=== PATIENT | female | born 2005 | race Two or more races ===

== ENCOUNTER → 2024-06-02 | Outpatient (CLI) | payer MEDICAID, SELFPAY ==
--- NOTE | 2024-06-02 13:00 | XR_ITS ---
Examination: Complete OB ultrasound, less than 14 weeks, transabdominal Date and time of exam: June 02, 2024 1327 hours INDICATIONS: Positive test 2 months ago Technique: Obstetrical ultrasound images less than 14 weeks performed via transabdominal imaging Findings: A normal shaped single intrauterine gestation is present in the uterus. pole 5.2 cm corresponds to 11 week 6 day gestational age Cardiac motion 167 BPM Anterior uterine body area of fibroid degeneration 4.1 cm Ultrasonographic survey of visible and placental structures unremarkable. Amniotic fluid volume appears appropriate for this estimated gestational age. Right ovary 2.8 cm arterial flow Left ovary 2.5 cm arterial flow IMPRESSION: Viable intrauterine gestation 11 weeks 6 days.
== END | disposition home or self-care (01) ==
LOC: CDIM 13:26
PROVIDERS: Referring Provider Nurse Practitioner Family; Visit Provider Nurse Practitioner Family
DX: Z32.01 Encounter for pregnancy test, result positive (principal)
CPT/HCPCS: 76801

== ENCOUNTER 2024-12-12 00:36 | Inpatient (IN) | payer MEDICAID, SELFPAY ==
[2024-12-12] VITALS (264 sets, daily range): BP systolic 99–163; BP diastolic 56–99; PULSE 72–138; RESP 16–100; TEMP 36.6–37.2; O2SAT 93–100; BMI 25.1
[2024-12-12 04:32] LABS: Eosinophils # (Auto) 0.0 Thou/mm3 (0.0-0.5); Eosinophils % (Auto) 0 % (0-10); Hemoglobin 11.9 g/dL (12.0-16.0); Nucleated Red Blood Cell # 0.00 Thou/mm3 (0.00-0.00); Nucleated Red Blood Cell % 0 /100 WBC (0)
[2024-12-12 04:35] LABS: Basophils # (Auto) 0.0 Thou/mm3 (0.0-0.2); Basophils % (Auto) 0 % (0-2.5); Hematocrit 35.1 % (36.0-46.0); Immature Granulocytes Auto 0.05 Thou/mm3 (0.00-0.00); Lymphocytes # (Auto) 1.4 Thou/mm3 (1.0-4.8); Lymphocytes % (Auto) 13 % (10-50); Mean Corpuscular HGB Conc 33.9 g/dl (31.0-37.0); Mean Corpuscular Hemoglobin 32.1 pg (25.0-35.0); Mean Corpuscular Volume 95 fL (80-100); Monocytes # (Auto) 0.8 Thou/mm3 (0.0-0.8); Monocytes % (Auto) 7 % (0-12); Neutrophils # (Auto) 8.0 Thou/mm3 (1.8-7.7); Neutrophils % (Auto) 79 % (37-80); Platelet Count 158 Thou/mm3 (140-440); RDW Standard Deviation 43.4 fL (36.4-46.3); Red Blood Count 3.71 Miln/mm3 (4.00-5.20); White Blood Count 10.2 Thou/mm3 (4.5-11.0)
[2024-12-12 05:16] LABS: Syphilis Nonreactive (Nonreactive)
[2024-12-12 08:24] LABS: Amphetamine/Metham Scrn,Ur OB Negative (Negative); Benzoylecgonine Screen, Ur OB Negative (Negative); Opiate Screen,Urine OB Negative (Negative); THC Screen,Urine OB Negative (Negative)
[2024-12-12] MEDS: RINGERS LACTATED 1000 ML 1,000 ML 100 ML IV ×3 (08:39→14:40)
--- NOTE | 2024-12-12 08:43 | ESHP_ITS ---
RE: GRICEL WILSON : 2005 DATE OF ADMISSION: 12/12/2024 HISTORY OF PRESENT ILLNESS: This is a 19-year-old 1, para 0 with due date of 12/17/2024 with intrauterine at 39 weeks and 2 days, who presents to labor and delivery complaining of contractions and demonstrated cervical change consistent with early labor. She denies any leaking or bleeding. She reports normal movement. She has care documented with [facility], which has been uncomplicated. Her group B strep is negative. She has taken iron for iron deficiency anemia. MEDICATIONS: multivitamin one p.o. daily. PAST MEDICAL HISTORY: Iron deficiency anemia. PAST SURGICAL HISTORY: Denies. SOCIAL HISTORY: She denies any alcohol, drug use or smoking. FAMILY HISTORY: Denies. ALLERGIES: NO KNOWN DRUG ALLERGIES. REVIEW OF SYSTEMS: She denies any chest pain, palpitations, cough, fever, shortness of breath or lower extremity pain. PHYSICAL EXAMINATION: VITAL SIGNS: Blood pressure 111/71, heart rate 88, respirations 18, temperature 98.6, weight 134 pounds. HEENT: Oropharynx and sclerae are clear. LUNGS: Clear to auscultation bilaterally. HEART: Regular rate and rhythm. ABDOMEN: Gravid consistent with estimated weight 7.5 pounds. PELVIC: See RN notes. EXTREMITIES: Nontender. SKIN: No gross rashes or lesions. NEUROLOGIC: No focal deficit. ASSESSMENT AND PLAN: Intrauterine at 39 weeks and 2 days labor. Anticipate spontaneous vaginal delivery. Informed consent was obtained. The patient was made aware of the risks, complications, alternatives, and benefits of operative vaginal delivery and delivery and agrees with these modes of delivery if indicated. DT: 07:38:32 TT: 08:31:00 Ref: [id number] - TID: [id number]
[2024-12-12] MEDS: OXYTOCIN in NS 30 units 30 UNIT/500 ML BAG IV (13:34)
--- NOTE | 2024-12-12 15:19 | PD.LDPN ---
Documentation for date of: 12/12/24 OB Labor Progress Note Pain Control Comments: Epidural Pelvic Exam Dilation (cm): 5.5 Effacement (%): 80 station: 0 Amniotic membrane status: Ruptured Comments: Clear fluid Vertex Contractions Monitor mode: External Contraction frequency: 2.5-6 Contraction pattern: Coupling Contraction intensity: Mild Status status: Category l Assessment and Plan Pitocin rate (mU/min): 2 Assessment: induction ongoing Comments: Continue augmentation with Pitocin Anticipate
[2024-12-12] MEDS: fentaNYL CIT INJ 50 mCg/ML AMP 2ML 100 MCG IVP (19:24)
[2024-12-12] MEDS: OXYTOCIN in NS 20 units 20 UNIT/1,000 ML BAG 125 UNIT IV (22:25)
[2024-12-12] MEDS: BENZO/LANO/ALOE (Dermoplast) 60 GM CAN 1 SPRAY TOP (23:03)
[2024-12-12] MEDS: IBUPROFEN TAB 400 MG TABLET 800 MG PO (23:08)
[2024-12-13] VITALS (35 sets, daily range): BP systolic 99–114; BP diastolic 56–77; PULSE 92–133; RESP 16–18; TEMP 36.7–37.5; O2SAT 97–100
[2024-12-13 05:43] LABS: Basophils # (Auto) 0.0 Thou/mm3 (0.0-0.2); Basophils % (Auto) 0 % (0-2.5); Eosinophils # (Auto) 0.0 Thou/mm3 (0.0-0.5); Eosinophils % (Auto) 0 % (0-10); Hematocrit 27.2 % (36.0-46.0); Hemoglobin 9.4 g/dL (12.0-16.0); Immature Granulocytes Auto 0.09 Thou/mm3 (0.00-0.00); Lymphocytes # (Auto) 1.5 Thou/mm3 (1.0-4.8); Lymphocytes % (Auto) 10 % (10-50); Mean Corpuscular HGB Conc 34.6 g/dl (31.0-37.0); Mean Corpuscular Hemoglobin 33.0 pg (25.0-35.0); Mean Corpuscular Volume 95 fL (80-100); Monocytes # (Auto) 1.3 Thou/mm3 (0.0-0.8); Monocytes % (Auto) 9 % (0-12); Neutrophils # (Auto) 12.1 Thou/mm3 (1.8-7.7); Neutrophils % (Auto) 81 % (37-80); Nucleated Red Blood Cell # 0.00 Thou/mm3 (0.00-0.00); Nucleated Red Blood Cell % 0 /100 WBC (0); Platelet Count 132 Thou/mm3 (140-440); RDW Standard Deviation 43.6 fL (36.4-46.3); Red Blood Count 2.85 Miln/mm3 (4.00-5.20); White Blood Count 15.1 Thou/mm3 (4.5-11.0)
--- NOTE | 2024-12-13 07:14 | ESPR_ITS ---
RE: GRICEL WILSON : 2005 DATE OF SERVICE: 12/13/2024 S: On day #1, the patient denies any problem or complaints. She is voiding. She is ambulating. She is tolerating diet. She is passing flatus. She denies any excessive vaginal bleeding. She denies any dizziness or lightheadedness. She denies any chest pain, palpitations, shortness of breath or lower extremity pain. O: Vital Signs: Blood pressure 109/71, heart rate 95, respirations 16, temperature 98.6, pulse oximetry 99% on room air. Lungs: Clear to auscultation bilaterally. Heart: Regular rate and rhythm. Abdomen: Fundus is firm. Extremities: Nontender. LABORATORY DATA: Hemoglobin pre-delivery is 11.9, post delivery 9.4. ASSESSMENT: On day #1, status post vacuum-assisted vaginal delivery, and anemia, but hemodynamically stable. P: Remove vaginal packing this morning. Encourage ambulation. proposal consultant. Possible discharge home within 24 hours. DT: 07:01:26 TT: 07:13:00 Ref: [id number] - TID: [id number]
[2024-12-13] MEDS: PRENATAL VITAMIN/FE FUM/FA TABLET 1 TAB PO (08:29)
[2024-12-13] MEDS: FERROUS SULF 325 MG TABLET PO ×2 (08:29→20:08)
--- NOTE | 2024-12-13 09:16 | PD.LDDELS ---
Data (Uribe) Data Hx Section: No : 1 Term: 0 : 0 Livin Abortions: Spontaneous & Theraputic: 0 Delivery Data (Uribe) Labor Data Initiation of labor: Spontaneous Induction/Augmentation Agent: Pitocin ROM date: 12/12/24 ROM time: 14:49 Amniotic membrane rupture type: Artificial Amniotic fluid description: Clear Delivery Data EDC: 12/17/24 EDC calculated by:: LMP/early US confirmation Onset of labor date: 12/12/24 Onset of labor time: 12:00 Complete dilation date: 12/12/24 Complete dilation time: 20:57 delivery date: 12/12/24 [place] delivery time: 22:24 Gestational age (weeks): 39 Gestational age (days): 2 Placenta delivery date: 12/12/24 Placenta delivery time: 22:32 Stage 1 total time: Labor - Stage 1 Duration 8 hours and 57 minutes Delivered by: Obdulio Tucker Delivery nurse: Cady Taylor RN [place] nurse: Becky Quach RN Manufacturing Engineering Director at delivery: No Support person(s) at delivery: father of baby, mother in law and pt's mother Delivery Method Delivery method: Normal Vaginal Delivery Presentation: Vertex position: OA Anesthesia Type Anesthesia Type: Epidural Placenta Placenta delivery description: Spontaneous Cord blood sent to lab: Yes cord blood collection: Cord Blood Type Episiotomy Episiotomy description: None Lacerations #1: Perineal: 2nd degree Vaginal: 2nd degree Perineal repair Sutures used for repair: 3.0 Chromic EBL Estimated blood loss (ml): 250 Umbilical Cord cord description: 3 Vessels and Nuchal Cord Complications Complications: None Data (Uribe) Data order: 1 [place] gender: Male Identification band number: [id number] weight (gms): 6 lb 10.527 oz Weight (pounds): 6 lbs and 10.5 ozs length: 20.47 in 1 minute: 8 5 minutes: 9
--- NOTE | 2024-12-13 09:23 | PD.LDDS ---
DS: Providers Provider Date of admission: 12/12/24 03:46 Primary care physician: Physician No Primary/Family Admitting Provider: Obdulio Tucker MD Attending Provider on Admission: Obdulio Tucker MD Consults: 12/13/24 00:37 Referral Routine Comment: Attending Provider on DC: Obdulio Tucker MD Discharging Provider: Obdulio Tucker MD DS: Diagnosis Problem List Completed Was Problem List Reviewed/Reconciled?: Yes Summary/Hosp Course Peripartum Data Delivery Method: Operative Vaginal Delivery Episiotomy Description: None Time Spent with Patient Time attestation: Total time spent providing and/or coordinating discharge services: Exam Vital Signs Temp Pulse Resp BP Pulse Ox O2 Del Method 98.1 F 98 16 99/66 100 Room Air 12/13/24 07:25 12/13/24 07:25 12/13/24 07:25 12/13/24 07:25 12/13/24 07:25 12/13/24 07:25 Discharge Plan Plan Patient Disposition: HOME (Self Care) Patient condition on transfer: Stable Prescriptions/Referrals Prescriptions/Med Rec: New ibuprofen 600 mg tablet 600 mg PO Q6H PRN (Reason: pain) Qty: 30 0RF Continued vit-iron fum-folic ac [ Tablet] 28 mg iron- 800 mcg tablet 1 tab PO QDAY ferrous sulfate [Feosol] 325 mg (65 mg iron) tablet 325 mg PO BID Referrals: No Primary/Family,Physician [Primary Care Provider] Patient/Caregiver Discharge Instructions Discharge Activity: activity as tolerated Other Discharge Activity Instructions:: Follow up office 6 weeks. Education Materials: After a Vaginal , : Caring for Yourself Print Language: Peruvian Activity Restrictions/Additional Instructions: follow up in 6 weeks. continue vitamin and iron pill. Stand Alone Forms: Felicia Award Info., Patient Portal Info Letter Vaccines Vaccines Given During Stay: MMR Discharge Order Discharge Orders: Discharge (Routine); Ordered 12/14/24 Ordered By: Obdulio Tucker Planned Discharge Date 12/14/24
--- NOTE | 2024-12-13 10:38 | PD.ADDDELA ---
Addendum Delivery Summary A Addendum Date of report being addended: 12/13/24 Narrative: Vacuum assisted vaginal delivery was performed for Cat 2 tracing, excessive bleeding and poor maternal expulsive effort after patients verbalized informed consent. Fully dilated. 4 plus station. OA. Mity Vac applied for one pull and delivered within 60 seconds. No pop offs.
[2024-12-13] MEDS: IBUPROFEN TAB 400 MG TABLET 800 MG PO (14:49)
--- NOTE | 2024-12-13 15:42 | PC.SS ---
CHILD STUDY TEAM DIRECTOR, Kim, met with patient [id number] to do initial assessment due to being late to care at 23-weeks of . CHILD STUDY TEAM DIRECTOR introduced herself, role in the agency, reason for visit, and discussed limits of confidentiality. Patient appeared alert and oriented to self, time, place, and situation. Patient appears stated age. Patient made good eye contact. Patient?s attitude appeared pleasant and cooperative. Patient?s behavior appeared ordinary. Patient?s mood appears ordinary. No signs of delusions or hallucinations. This is 19-year-old, , life-partnered female who presented to deliver her son, Dallas. Patient confirmed her address and phone number. Patient resides at home with her parents and older sibling. Father of the baby, Cory Rushing (phone: [phone]) is involved in the care. She is connected with [employer]. Patient is independent with all daily activities; she denies any DME use. Patient denies any history or current mental health illnesses. She denies receiving any outpatient mental health services. Patient denies any history of suicide attempts, 5150 holds. Patient denied any HI, SI, and suicide attempts. Patient reported that her first OBGYN appointment was at 23-weeks due to not having an available OB in [place]. Patient reported that she attempted to follow-up with OBGYN in [place]; however, the office was not taking new patients. Patient reported that she attempted to follow-up in [place]; however, it is too far. Patient reported that she was finally able to see Dr. Tucker, but she was 23-weeks. Patient reports feeling happy and excited to return home. Patient reports having all the equipment for the baby. Patient will return home when medically clear. Patient declined any resources. Patient reported that her mother, Lucía will be provided her assistance with Dallas and providing transportation. Patient will take Dallas to see Dr. Marcano and has ensured that physician is taking new patients. No SCAR is warranted at this time.
[2024-12-13] MEDS: ACETAMINOPHEN 325 MG TABLET 650 MG PO (15:58)
[2024-12-14 03:52] VITALS: BP 105/67; PULSE 98; RESP 16; TEMP 37.2; O2SAT 100
--- NOTE | 2024-12-14 06:46 | ESPR_ITS ---
RE: GRICEL WILSON : 2005 DATE OF SERVICE: 12/14/2024 SUBJECTIVE: day #1, the patient denies any problem or complaint. She is voiding and ambulating and tolerating a regular diet and passing flatus. She denies any excessive vaginal bleeding. She denies any dizziness or lightheadedness. She denies any chest pain, palpitations, shortness of breath, or lower extremity pain. OBJECTIVE: Vital Signs: Blood pressure 105/67, heart rate 98, respirations 16, temperature is 98.9, pulse oximetry is 100% on room air. Lungs: Clear to auscultation bilaterally. Heart: Regular rate and rhythm. Abdomen: Fundus is firm and nontender. Extremities: Nontender. LABORATORY DATA: Hemoglobin pre-delivery is 11.9, post delivery 9.4. ASSESSMENT: day #1, status post vacuum-assisted vaginal delivery, anemia, but hemodynamically stable with no significant ongoing vaginal bleeding. PLAN: Discharge home when baby is cleared. Discharge instructions were given. Follow up in the office in 6 weeks. Continue iron as an outpatient with vitamin. DT: 06:21:33 TT: 06:45:00 Ref: [id number] - TID: [id number]
[2024-12-14 08:50] VITALS: BP 104/70; PULSE 102; RESP 16; TEMP 36.6; O2SAT 99
[2024-12-14] MEDS: FERROUS SULF 325 MG TABLET PO (08:53)
[2024-12-14] MEDS: IBUPROFEN TAB 400 MG TABLET 800 MG PO (08:53)
[2024-12-14] MEDS: PRENATAL VITAMIN/FE FUM/FA TABLET 1 TAB PO (08:53)
== END 2024-12-14 14:20 | disposition home or self-care (01) | DRG 560 ==
LOC: S4SX 22:47 → S4NX 12-13 02:24
PROVIDERS: Admitting Provider Specialist; Visit Provider Specialist
DX: O69.81X0 Labor and delivery complicated by cord around neck, without compression, not applicable or unspecified (principal); O70.1 Second degree perineal laceration during delivery; Z37.0 Single live birth; O99.02 Anemia complicating childbirth; D50.9 Iron deficiency anemia, unspecified; Z23 Encounter for immunization; Z3A.39 39 weeks gestation of pregnancy
CPT/HCPCS: 36415; 59025; 59409; 80307; 85025; 86780; 86850; 86900; 86901; 90707; 94762; J2590; J2795; J3010; J7120; A9270